=== PATIENT | male | born 1965 | race Caucasian/White ===

== ENCOUNTER 2021-04-22 16:33 | Emergency (ER) | payer OTHER, SELFPAY ==
--- NOTE | ~2021-04-22 | US_ITS ---
EXAMINATION: US VENOUS ULTRASOUND WITH DOPPLER LOWER EXTREMITY, RIGHT CLINICAL INFORMATION: Swelling, pain COMPARISON: None TECHNIQUE: Ultrasound of the deep veins is performed from the hip to the calf with compression sonography and color and pulse Doppler assessment. Spectral analysis with color-flow imaging is performed. FINDINGS: There is normal venous compression and respiratory variation and augmented flow. The visualized common femoral vein, superficial femoral vein, profunda femoral vein, popliteal vein, and the trifurcation region shows no evidence of deep venous thrombosis. There is no significant popliteal fossa cyst. If the patient's symptoms persist, followup ultrasound in 5 days 7 days might be of value to exclude proximal propagation from a non-visualized calf vein. US/US venous duplex LE RT IMPRESSION: No DVT demonstrated in the right lower extremity.
[2021-04-22 16:35] VITALS: BP 155/73; PULSE 90; RESP 18; TEMP 36.7; O2SAT 98; BMI 30.4
--- NOTE | 2021-04-22 17:00 | ED_ITS ---
HPI - Extremity Problem General Chief complaint: Extremity Injury, Lower Stated complaint: LEG PAIN Time Seen by Provider: 04/22/21 16:57 Source: patient Mode of arrival: ambulatory Limitations: no limitations History of Present Illness HPI Narrative: states right lower extremity below the knee slightly swollen and noted to have slight redness for the past 2 days. States he does work on [employer] and he is on his knees a lot and unsure if he abraded area. He otherwise denies any other symptoms, no fever, chest pain, shortness of breath or prior history of DVT. Onset (ago): day(s) Location: right Quality: aching Radiation: none Relieving factors: nothing Exacerbating factors: nothing Associated symptoms: denies other symptoms Related Data Previous Rx's Medication Instructions Recorded cephalexin 500 mg PO BID 10 Days #20 cap 04/22/21 sulfamethoxazole-trimethoprim 1 tab PO Q12H 7 Days #14 tab 04/22/21 [Bactrim DS] Allergies Allergy/AdvReac Type Severity Reaction Status Date / Time No Known Allergies Allergy Unverified 07/14/20 17:54 Review of Systems Review of Systems: Constitutional: No Weight loss, No Fever, No Chills, No Night Sweats, No Fatigue, No Malaise ENT/Mouth: No Hearing loss, No Ear Pain, No Nasal Congestion, No Sinus Pain, No Hoarseness, No sore throat, No Rhinorrhea, No Swallowing Difficulty Eyes: No Eye Pain, No Swelling, No Redness, No Foreign Body, No Discharge, No Vision Changes Cardiovascular: No Chest Pain, No SOB, No Dyspnea on Exertion, No Orthopnea, No Edema, No Palpitations Respiratory: No Cough, No Sputum, No Wheezing, No Smoke Exposure, No Dyspnea Gastrointestinal: No Nausea, No Vomiting, No Diarrhea, No Constipation, No abdominal Pain, No Hematochezia, No Melena Genitourinary: no irregular bleeding, No Dysuria, No Urinary Frequency, No Hematuria, No Urinary Incontinence, No Urgency, No Flank Pain, No Urinary Flow Changes, No Hesitancy Musculoskeletal: No joint pain, No Myalgias, No Joint Swelling Skin: No Skin Lesions, No rash , as noted per HPI Neuro: No Weakness, No Numbness, No Paresthesias, No Loss of Consciousness, No Dizziness, No Headache Psych: No Anxiety/Panic, No Depression, No SI/HI/AH/VH, No Social Issues, Heme/Lymph: No Bruising, No Bleeding,No Lymphadenopathy Endocrine: No Polyuria, No Polydipsia, No Temperature Intolerance Yes all other systems are reviewed and are negative [facility] Past Medical History Medical History (Updated 04/22/21 @ 19:59 by Tomas Tavera NP) No known health problems Social History Social History Advance Directives: No Advance Directives Information Provided: No Physical Exam Vital Signs: Vital Signs: Last Vital Signs Temp 98.0 F 04/22/21 16:35 Pulse 90 04/22/21 16:35 Resp 18 04/22/21 16:35 BP 155/73 H 04/22/21 16:35 Pulse Ox 98 04/22/21 16:35 Body Mass Index 30.4 Reviewed Const: General: cooperative and healthy appearing; No acute distress or intoxicated appearing Nutritional Appearance: average body habitus Orientation/consciousness: patient oriented x3 HENMT: Head: Yes normal to inspection Ears: hearing grossly normal bilaterally Eyes: General: appearance normal, both eyes and all related structures Vis ual Wheeler: normal visual wheeler by confrontation Neck: Neck: Yes normal visual inspection, No positive Brudzinski's sign, No positive Kernig's sign and No tender Thyroid: Thyroid normal Chest: Chest palpation & inspection: normal inspection of the chest Resp: Effort & Inspection: normal respiratory effort Cardio: Jugular venous distension: no JVD GI: Inspection: Yes normal to inspection Percussion: Yes normal to per cussion Auscultation: normal bowel sounds : General: Yes no CVA tenderness Back/Spine/Pelvis: Back: no CVA tenderness Skin: General skin exam: no rashes or lesions noted Neuro: General: patient oriented x3 Extrem: General: Yes normal to inspection Upper/lower leg/hip images: 1. very slight area of callus skin with very mi nimal skin erythema consistent with early cellulitis. Minimal swelling compared to the opposite leg. There is no overt edema, no pitting edema. Pulses distally within normal limits. Cap refill within normal limits. Knee exam unremarkable does not suggest acute joint. MDM - Extremity (Nontraumatic) Lab Data Result diagrams: 04/22/21 17:33 04/22/21 17:33 Labs: Lab Results 04/22/21 04/22/21 Range/Units 17:33 17:33 WBC 10.0 (4.8-10.8) X10*3/uL RBC 4.16 L (4.60-5.80) X10*6/uL Hgb 14.0 (14.0-18.0) g/dl Hct 39.9 L (42-52) % MCV 95.9 (80-98) fL MCH 33.7 H (27.0-33.0) pg MCHC 35.1 (31.0-36.0) g/dl RDW 11.8 (11.0-16.0) % Plt Count 198 (160-400) X10*3/uL MPV 9.7 (9.4-12.4) fL Immature Gran % (Auto) 0.2 (0.0-0.4) % Neut % (Auto) 56.5 (45-73) % Lymph % (Auto) 33.5 (20-40) % [place] % (Auto) 6.3 (2-11) % Eos % (Auto) 2.9 (0-4) % Baso % (Auto) 0.6 (0-2) % Lymph # (Auto) 3.3 (1.2-4.9) X10*3/uL [place] # (Auto) 0.6 (0.1-1.2) X10*3/uL Eos # (Auto) 0.3 (0.0-0.4) X10*3/uL Baso # (Auto) 0.1 (0.0-0.2) X10*3/uL Abs Immat Gran (auto) 0.02 (0.00-0.03) X10*3/uL Absolute Neuts (auto) 5.6 (2.0-8.3) X10*3/uL Absolute Nucleated RBC 0.000 (0.0-0.012) X10*3/uL Nucleated RBC % (auto) 0.0 (0.0-0.2) /100WBC Sodium 136 (135-145) mmol/L Potassium 3.9 (3.3-5.1) mmol/L Chloride 104 (96-108) mmol/L Carbon Dioxide 21 L (22-29) mmol/L Anion Gap 15 (12-20) BUN 22 H (9-16) mg/dL Creatinine 1.13 (0.5-1.4) mg/dL Estim Creat Clear Calc 78.8 Estimated GFR > 60 Random Glucose 156 H (60-115) mg/dL Calcium 9.4 (8.4-10.2) mg/dL Total Bilirubin 0.2 (0.0-1.0) mg/dL AST 20 (5-37) U/L ALT 19 (0-40) U/L Alkaline Phosphatase 96 (39-117) U/L Total Protein 7.6 (6.5-8.0) g/dL Albumin 4.4 (3.5-5.0) g/dL Imaging Data Right lower extremity ultrasound: Radiologist's impression: [address] [id number] ReportSigned Patient: Pat Shultz#: [id number]: 1965Acct:[id number]/Sex: 55 / MADM Date: 04/22/21Loc: [address]: Ordering Physician: Tomas Tavera NP Date of Service: 04/22/21 Procedure(s): US venous duplex LE RT Accession Number(s): [id number] cc: Tomas Tavera NP~ EXAMINATION: US VENOUS ULTRASOUND WITH DOPPLER LOWER EXTREMITY, RIGHT CLINICAL INFORMATION: Swelling, pain COMPARISON: None TECHNIQUE: Ultrasound of the deep veins is performed from the hip to the calf with compression sonography and color and pulse Doppler assessment. Spectral analysis with color-flow imaging is performed. FINDINGS: There is normal venous compression and respiratory variation and augmented flow. The visualized common femoral vein, superficial femoral vein, profunda femoral vein, popliteal vein, and the trifurcation region shows no evidence of deep venous thrombosis. There is no significant popliteal fossa cyst. If the patient's symptoms persist, followup ultrasound in 5 days 7 days might be of value to exclude proximal propagation from a non-visualized calf vein. US/US venous duplex LE RT IMPRESSION: No DVT demonstrated in the right lower extremity. Dictated By:JOHN ALDRICH MDSigned By:<Electronically signed by JOHN ALDRICH MD in OV>04/22/21 1842 DD/ 1720TD/TT: Mat Repairer: GT Discharge Plan Discharge Clinical Impression: Cellulitis of right lower leg Patient Disposition: Home, Self-Care Instructions: Cellulitis (ED) Additional Instructions: ice, elevate, compress Take your antibiotic ointment as prescribed Return if any concerns or worsening symptoms Thank you Prescriptions: New cephalexin 500 mg capsule 500 mg PO BID 10 Days Qty: 20 RF: 0 sulfamethoxazole-trimethoprim [Bactrim DS] 800-160 mg tablet 1 tab PO Q12H 7 Days Qty: 14 RF: 0 Referrals: Physician,Unknown [Primary Care Provider] - 5 days Discharge Date/Time: 04/22/21 20:19
[2021-04-22 17:37] LABS: MANUAL DIFF FLAG NO
[2021-04-22 17:40] LABS: Basophils Absolute Auto 0.1 X10*3/uL (0.0-0.2); Basophils Percent Auto 0.6 % (0-2); Eosinophils Absolute Auto 0.3 X10*3/uL (0.0-0.4); Eosinophils Percent Auto 2.9 % (0-4); Hematocrit 39.9 % (42-52); Imm Gran Abs Auto 0.02 X10*3/uL (0.00-0.03); Imm Gran Pct Auto 0.2 % (0.0-0.4); Lymphocytes Absolute Auto 3.3 X10*3/uL (1.2-4.9); Lymphocytes Percent Auto 33.5 % (20-40); Mean Corpuscular HGB Conc 35.1 g/dl (31.0-36.0); Mean Corpuscular Hemoglobin 33.7 pg (27.0-33.0); Mean Corpuscular Volume 95.9 fL (80-98); Mean Platelet Volume 9.7 fL (9.4-12.4); Monocytes Absolute Auto 0.6 X10*3/uL (0.1-1.2); Monocytes Percent Auto 6.3 % (2-11); Neutrophils Absolute Auto 5.6 X10*3/uL (2.0-8.3); Neutrophils Percent Auto 56.5 % (45-73); Platelet Count 198 X10*3/uL (160-400); Red Blood Count 4.16 X10*6/uL (4.60-5.80); Red Cell Distribution Width 11.8 % (11.0-16.0)
[2021-04-22 18:02] LABS: Alanine Aminotransferase 19 U/L (0-40); Albumin Level 4.4 g/dL (3.5-5.0); Alkaline Phosphatase 96 U/L (39-117); Anion Gap 15 (12-20); Aspartate Amino Transferase 20 U/L (5-37); Bilirubin Total 0.2 mg/dL (0.0-1.0); Blood Urea Nitrogen 22 mg/dL (9-16); Calcium 9.4 mg/dL (8.4-10.2); Carbon Dioxide 21 mmol/L (22-29); Chloride 104 mmol/L (96-108); Creatinine Clr Calc Pharmacy 78.8; Estimated Glomerular Filt Rate > 60; Glucose Random 156 mg/dL (60-115); Potassium 3.9 mmol/L (3.3-5.1); Sodium 136 mmol/L (135-145); Total Protein 7.6 g/dL (6.5-8.0)
== END 2021-04-22 20:19 | disposition home or self-care (01) ==
PROVIDERS: Nurse Practitioner Primary Care; Emergency Provider Emergency Medicine
DX: L03.115 Cellulitis of right lower limb (principal); M79.604 Pain in right leg
CPT/HCPCS: 36415; 80053; 85025; 93971; 99284

== ENCOUNTER 2021-05-04 11:33 | Outpatient (REF) | payer OTHER, SELFPAY ==
--- NOTE | ~2021-05-04 | XR_ITS ---
EXAMINATION: XR KNEE, RIGHT CLINICAL INFORMATION: Laceration anterior thigh. Right knee pain and effusion. COMPARISON: None TECHNIQUE: Four views of the right knee. FINDINGS: There is no evidence of acute fracture or dislocation of the right knee. There is mild narrowing of the medial joint space compartment with minimal spurring marginally. There is a small spur about the lateral facet of the patella. No effusion is identified. XR/XR knee RT 4V IMPRESSION: Mild degenerative change of the right knee as described without fracture or effusion identified.
== END 2021-05-04 11:34 | disposition home or self-care (01) ==
LOC: HO.XRAY 11:33
PROVIDERS: PCP Internal Medicine; Visit Provider Registered Nurse
DX: M25.461 Effusion, right knee (principal); M25.561 Pain in right knee
CPT/HCPCS: 73564

== ENCOUNTER 2021-06-09 16:28 | Emergency (ER) | payer OTHER, SELFPAY ==
[2021-06-09 16:44] VITALS: BP 127/65; PULSE 92; RESP 16; TEMP 36.9; O2SAT 95; BMI 30.5
--- NOTE | 2021-06-09 17:38 | ED_ITS ---
HPI - Skin/Abscess/Foreign Bdy General Chief complaint: Skin/Abscess/Foreign Body Stated complaint: wrist inj Time Seen by Provider: 06/09/21 17:24 Source: patient Mode of arrival: ambulatory Limitations: no limitations History of Present Illness HPI narrative: 55-year-old male presents for a lump in his right wrist that he noticed 2 or 3 days ago. Patient states it was swollen and painful, but he applied ice yesterday and the swelling-pain has decreased. 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 Patient was treated for cellulitis of his leg in March. No fevers, patient is feeling well otherwise. MD complaint: abscess/boil Onset (ago): day(s) (3) Tetanus up to date: unsure Location: RUE Severity: mild Severity scale (1-10): 2 Quality: aching Pain Consistency: now resolved Relieving factors: cold therapy Exacerbating factors: none Context: none Associated symptoms: denies other symptoms Treatments prior to arrival: other (ice) Related Data Previous Rx's Medication Instructions Recorded cephalexin 500 mg capsule 500 mg PO BID 10 Days #20 cap 04/22/21 sulfamethoxazole 800 1 tab PO Q12H 7 Days #14 tab 04/22/21 mg-trimethoprim 160 mg tablet (Bactrim DS) cephalexin 500 mg capsule 500 mg PO QID 7 Days #28 cap 06/09/21 sulfamethoxazole 800 1 tab PO Q12H 7 Days #14 tab 06/09/21 mg-trimethoprim 160 mg tablet (Bactrim DS) Allergies Allergy/AdvReac Type Severity Reaction Status Date / Time No Known Allergies Allergy Unverified 07/14/20 17:54 Review of Systems Constitutional: Constitutional: Denies body ache(s), Denies chills, Denies fatigue, Denies fever(s), Denies malaise and Denies weakness ENT: Denies otalgia, Denies nasal congestion, Denies post nasal drip and Denies sore throat Cardiovascular: Cardiovascular: Denies chest pain and Denies dyspnea Respiratory: Respiratory: Denies chest congestion, Denies cough and Denies dyspnea Gastrointestinal: Gastrointestinal: Denies abdominal pain, Denies hematochezia, Denies constipation, Denies diarrhea and Denies vomiting Musculoskeletal: Musculoskeletal: Reports no additional musculoskeletal complaints and Denies tingling Integumentary/Breasts: Skin/Breast: Reports rash Neurologic: Denies confusion, Denies tingling and Denies weakness Psychiatric: Psychiatric: Denies anxiety, Denies confusion and Denies depress ion Endocrine: Endocrine: Denies fatigue PMFSH Past Medical History Medical History (Updated 06/09/21 @ 17:41 by PRO Santo) No known health problems Social History Social History Advance Directives: No Advance Directives Information Provided: No Physical Exam Vital Signs: Vital Signs: Last Vital Signs Temp 98.4 F 06/09/21 16:44 Pulse 92 06/09/21 16:44 Resp 16 06/09/21 16:44 BP 127/65 06/09/21 16:44 Pulse Ox 95 06/09/21 16:44 Body Mass Index 30.5 Const: General: No confusion Nutritional Appearance: well nourished Orientation/consciousness: No confusion Limitations: no limitations Eyes: Conjunctivae: conjunctivae normal Pupils: Equal, round and reactive pupils present EOM: EOMs intact bilaterally Resp: Effort & Inspection: normal respiratory effort and able to speak in complete sentences Auscultation: clear to auscultation bilaterally, no crackles, no rales, no rhonchi and no wheezes Cardio: Rate: regular rate Rhythm: regular rhythm Heart sounds: S1 normal heart sound present and S2 normal heart sound present GI: Inspection: Yes normal to inspection Palpation (GI): Soft to palpation, nontender, no guarding and not rigid Percussion: Yes normal to percussion Auscultation: normal bowel sounds Skin: Other: Rashes: rashes noted Full body images: 1. 2 cm erythematous area of swelling Neuro: General: No confusion Cranial nerves: Yes Equal, round and reactive pupils present Extrem: General: Yes normal to inspection and Yes full ROM Psych: Appearance: grossly normal Affect: normal affect Attitude: cooperative Thought process: Normal thought process present Course Course Course Narrative: 55-year-old male presents for right wrist lump and swelling that started 3 days ago. On exam, the area is indurated, mildly erythematous. This may be a developing abscess, but I do not think there is anything to drain because the bump is hard. Counseled patient to take Bactrim and Keflex, to apply warm compresses for the next 2 days, and to return to the emergency room in 2 days if the area has not resolved. I did leyla the area with a surgical marker. Discharge Plan Discharge Clinical Impression: Cellulitis Qualifiers: Site of cellulitis: extremity Site of cellulitis of extremity: upper extremity Laterality: right Qualified Code(s): L03.113 - Cellulitis of right upper limb Patient Disposition: Home, Self-Care Instructions: Cellulitis (ED) Additional Instructions: Please fill both antibiotics and take them for the next week. Please start tonight. If in 2 days you have more redness, pain, or swelling, please return to be seen to the emergency room. As we discussed, this may get a little worse before it gets better, but if you have worsening symptoms on Saturday afternoon, please return to the emergency room. Please return for any fevers, any chest pain, shortness of breath, or any other new or concerning symptoms. Prescriptions: New cephalexin 500 mg capsule 500 mg PO QID 7 Days Qty: 28 RF: 0 sulfamethoxazole-trimethoprim [Bactrim DS] 800-160 mg tablet 1 tab PO Q12H 7 Days Qty: 14 RF: 0 No Action cephalexin 500 mg capsule 500 mg PO BID 10 Days Qty: 20 RF: 0 sulfamethoxazole-trimethoprim [Bactrim DS] 800-160 mg tablet 1 tab PO Q12H 7 Days Qty: 14 RF: 0
== END 2021-06-09 17:55 | disposition home or self-care (01) ==
PROVIDERS: Emergency Provider Emergency Medicine
DX: L03.113 Cellulitis of right upper limb (principal); M25.531 Pain in right wrist
CPT/HCPCS: 99283

== ENCOUNTER 2022-02-02 15:52 | Emergency (ER) | payer OTHER, SELFPAY ==
--- NOTE | ~2022-02-02 | XR_ITS ---
EXAMINATION: XR HAND, RIGHT CLINICAL INFORMATION: Second digit laceration, pain. COMPARISON: None TECHNIQUE: PA, lateral, and oblique views of the right hand. FINDINGS: A tiny osseous density seen along the radial margin of the distal phalanx of the second digit. The remainder the digits is intact. The joint spaces are unremarkable. The carpal bones are normally aligned. The distal radius and ulna are intact. Mild soft tissue swelling is seen in the second digit XR/XR hand RT min 3V IMPRESSION: Tiny osseous density along the radial margin of the distal phalanx of the second digit is of indeterminate age. An acute fracture cannot be excluded. Mild soft tissue swelling. No radiopaque foreign body.
[2022-02-02 15:55] VITALS: BP 141/78; PULSE 95; RESP 19; TEMP 36.1; O2SAT 98; BMI 31.2
[2022-02-02] MEDS: Lidocaine HCl 2 % MPF 5 ML VIAL SUBCUT (16:27)
--- NOTE | 2022-02-02 16:35 | ED.WOUNDLAC ---
HPI - Wound/Laceration General Chief Complaint: Wound/Laceration Stated Complaint: finger lac Time Seen by Provider: 02/02/22 16:07 Source: patient Mode of arrival: ambulatory Limitations: no limitations History of Present Illness HPI narrative: This is a 56-year-old male past medical history significant for diabetes presenting to the emergency department with complaints of right 2nd digit pain and a laceration to the area status post having the back of his pickup truck door fall in his hand he tells me this was approximately 500 lb. He tells me he is up to date on a tetanus shot. He is able to move his finger with pain. Bleeding well controlled. Denies numbness or tingling. Denies foreign body sensation. Denies fevers, chills, chest pain, shortness of breath, nausea, vomiting, headache, dizziness. He tells me he thinks he is up-to-date on a tetanus shot within last 5 years. Patient is right-hand dominant Onset (ago): hour(s) (3) Location: other (right second digit ) Body four view annotation: 1. linear laceration [address]: home Patient tetanus UTD: Yes Context: accidental Associated symptoms: pain Related Data Previous Rx's Medication Instructions Recorded cephalexin 500 mg capsule 500 mg PO BID 10 Days #20 cap 04/22/21 sulfamethoxazole 800 1 tab PO Q12H 7 Days #14 tab 04/22/21 mg-trimethoprim 160 mg tablet (Bactrim DS) cephalexin 500 mg capsule 500 mg PO QID 7 Days #28 cap 06/09/21 sulfamethoxazole 800 1 tab PO Q12H 7 Days #14 tab 06/09/21 mg-trimethoprim 160 mg tablet (Bactrim DS) cephalexin 500 mg tablet 500 mg PO Q6H 10 Days #40 tab 02/02/22 doxycycline hyclate 100 mg capsule 100 mg PO BID 10 Days #20 cap 02/02/22 Allergies Allergy/AdvReac Type Severity Reaction Status Date / Time No Known Allergies Allergy Verified 02/02/22 16:00 Review of Systems Review of Systems: Constitutional : No Fever, No Chills, Cardiovascular : No Chest Pain, No SOB Respiratory : No Dyspnea Gastrointestinal : No abdominal pain Musculoskeletal : No Joint Swelling Skin : No rash, positive skin laceration Neuro : No Weakness, No Numbness Psych : No SI/HI Yes all other systems are reviewed and are negative PMFSH Past Medical History Attestation statement: The following information was validated with the patient. Source: old records reviewed and nursing notes reviewed Medical History Diabetes No known health problems Social History Social History Advance Directives: No Advance Directives Information Provided: No Physical Exam Vital Signs: Vital Signs: Last Vital Signs Temp 97 F 02/02/22 15:55 Pulse 95 02/02/22 15:55 Resp 19 02/02/22 15:55 BP 141/78 H 02/02/22 15:55 Pulse Ox 98 02/02/22 15:55 BMI result Body Mass Index 31.2 Vital signs stable Appearance: Alert.? Oriented X3.? No acute distress.? Head: Normocephalic, atraumatic, no step-offs or deformities Eyes: Pupils equal, round and reactive to light.? ENT: Pharynx normal.? Neck: Normal inspection.? Neck supple.? CVS: Normal heart rate and rhythm.? Pulses normal.? Respiratory: No respiratory distress.? Breath sounds normal.? Abdomen: Soft and nontender.? Skin: Skin warm and dry.? Normal skin color.? Normal skin turgor.?+ 5 cm linear laceration to the right 2nd digit ventral aspect. Extremities: No lower extremity edema.? No calf ttp. 5/5 strength to bilateral upper and lower extremities + pain w/ rom of right second digit, this second right digit w/ ecchymosis. No evident foreign bodies. Capillary refill less than 2 seconds on all upper extremity digits. Bilateral radial pulses 2+ equal bilateral. Sensation intact to bilateral upper extremities. Back: No midline tenderness, no C-spine tenderness, full range of motion, no CVA tenderness bilaterally Neuro: Oriented X 3.? No motor deficit.? No sensory deficit. CN 2-12 intact Course Reevaluation(s) Reevaluation #1: The area was thoroughly at irrigated by myself, cleaned well, sutures in place for non dissolvable sutures. Explained to patient to return in 7-10 days for suture removal. Educated him on signs of infection. Outlined his on his discharge. Given worrisome signs and symptoms and when to return in outline is on his discharge. Comfortable discharge home with PCP follow-up. And follow-up with hand surgery. Time: 16:41 Reevaluation #2: Reviewed x-ray results with patient. I will have him follow-up with ortho. Cannot exclude a small fracture. He will be treated with antibiotics. Time: 17:42 MDM - Wound/Laceration MDM Narrative Medical decision making narrative: 1639 56-year-old male presents to the emergency department with pain, swelling, bruising and laceration to the right 2nd digit status post dropping the back of his pickup truck on his finger. Patient is a diabetic. Up-to-date on tetanus shot. Bleeding well controlled. Patient not on blood thinners. Upon physical examination pain w/ rom of right second digit, this second right digit w/ ecchymosis. No evident foreign bodies. Capillary refill less than 2 seconds on all upper extremity digits. Bilateral radial pulses 2+ equal bilateral. Sensation intact to bilateral upper extremities. Plan at this time is to suture the area to control bleeding. I will also obtain a x-ray of the right hand to rule out fractures/dislocations due to mechanism of injury. I plan to start patient on prophylactic antibiotics as he is a diabetic. Medical Records Attestation: I reviewed the patient's medical records. Lab Data Attestation: I reviewed the patient's lab results. Critical Care Time Critical Care Time Critical Care Time: No Discharge Plan Discharge Clinical Impression: Laceration, Finger pain, right Patient Disposition: Home, Self-Care Additional Instructions: Take your medications as prescribed. If you were prescribed antibiotics today, it is important that you take your medication to their entirety, do not skip any doses, do not finish them early. Follow-up with your primary care provider this week. Return to the emergency department with new or worsening symptoms. Such as fevers, chills, chest pain, shortness of breath, nausea, vomiting, dizziness, headache, vision changes, lethargy, any signs of infection at the wound such as warmth, discharge from the area, worsening swelling, inability to failure finger numbness or tingling. In case of emergency call 911 Return in 7-10 days for suture removal. XR/XR hand RT min 3V IMPRESSION: Tiny osseous density along the radial margin of the distal phalanx of the second digit is of indeterminate age. An acute fracture cannot be excluded. Mild soft tissue swelling. No radiopaque foreign body. Prescriptions: New doxycycline hyclate 100 mg capsule 100 mg PO BID 10 Days Qty: 20 0RF cephalexin 500 mg tablet 500 mg PO Q6H 10 Days Qty: 40 0RF No Action cephalexin 500 mg capsule 500 mg PO QID 7 Days Qty: 28 0RF sulfamethoxazole-trimethoprim [Bactrim DS] 800-160 mg tablet 1 tab PO Q12H 7 Days Qty: 14 0RF cephalexin 500 mg capsule 500 mg PO BID 10 Days Qty: 20 0RF sulfamethoxazole-trimethoprim [Bactrim DS] 800-160 mg tablet 1 tab PO Q12H 7 Days Qty: 14 0RF Referrals: Nafisa Holland MD [Physician] - 1 week Physician,Unknown J [Primary Care Provider] - Stand Alone Forms: Work/School Release
== END 2022-02-02 17:54 | disposition home or self-care (01) ==
PROVIDERS: Emergency Provider Emergency Medicine
DX: S61.210A Laceration without foreign body of right index finger without damage to nail, initial encounter (principal); Y28.9XXA Contact with unspecified sharp object, undetermined intent, initial encounter; Y93.9 Activity, unspecified; Y92.9 Unspecified place or not applicable; Y99.9 Unspecified external cause status; Z79.899 Other long term (current) drug therapy
CPT/HCPCS: 12042; 73130; 99283; 99284

== ENCOUNTER 2022-02-08 08:36 | Outpatient (REF) | payer OTHER, SELFPAY ==
--- NOTE | ~2022-02-08 | XR_ITS ---
EXAMINATION: XR HAND, RIGHT CLINICAL INFORMATION: Pain. COMPARISON: 02/02/2022. TECHNIQUE: PA, lateral, and oblique views of the right hand. FINDINGS: A tiny ossific density along the radial margin of the distal phalanx is unchanged. No new injuries. Mild joint space narrowing and subcortical sclerosis at the first CMC joint and triscaphe space. Diffuse nonspecific soft tissue swelling which is somewhat more noticeable surrounding the second digit. XR/XR hand RT min 3V IMPRESSION: Nonspecific soft tissue swelling in the second digit, correlate with physical examination. No interval osseous injuries. 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
== END 2022-02-08 08:37 | disposition home or self-care (01) ==
LOC: HO.HOSX 08:36
PROVIDERS: Visit Provider Physician Assistant
DX: S61.210A Laceration without foreign body of right index finger without damage to nail, initial encounter (principal)
CPT/HCPCS: 73130; 99202

== ENCOUNTER 2022-07-18 17:46 | Emergency (ER) | payer OTHER, SELFPAY ==
[2022-07-18 18:39] VITALS: BP 156/78; PULSE 80; RESP 18; TEMP 36.5; O2SAT 96; BMI 30.7
--- NOTE | 2022-07-18 19:49 | ED_ITS ---
HPI - General Adult General Chief complaint: General Medical Stated complaint: groin pain Time Seen by Provider: 07/18/22 19:40 Source: patient Mode of arrival: ambulatory Limitations: no limitations History of Present Illness HPI narrative: This is a 48-year-old male presenting to the emergency department with complaints of rash to the groin area x2 weeks. Patient tells me that the rash is itchy, red and very uncomfortable. 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 Patient denies fevers, chills, chest pain, shortness of breath, nausea, vomiting, penis pain, discharge from penis. Related Data Previous Rx's Medication Instructions Recorded cephalexin 500 mg capsule 500 mg PO BID 10 days #20 caps 04/22/21 sulfamethoxazole 800 1 tab PO Q12H 7 days #14 tabs 04/22/21 mg-trimethoprim 160 mg tablet (Bactrim DS) cephalexin 500 mg capsule 500 mg PO QID 7 days #28 caps 06/09/21 sulfamethoxazole 800 1 tab PO Q12H 7 days #14 tabs 06/09/21 mg-trimethoprim 160 mg tablet (Bactrim DS) cephalexin 500 mg tablet 500 mg PO Q6H 10 days #40 tabs 02/02/22 doxycycline hyclate 100 mg capsule 100 mg PO BID 10 days #20 caps 02/02/22 cephalexin 500 mg tablet 500 mg PO Q6H 10 days #40 tabs 07/18/22 clotrimazole 1 % topical cream 1 appl topical BID 2 weeks #30 07/18/22 (Jock Itch (clotrimazole)) grams prednisone 20 mg tablet 40 mg PO DAILY 5 days #10 tabs 07/18/22 Allergies Allergy/AdvReac Type Severity Reaction Status Date / Time No Known Allergies Allergy Verified 02/08/22 13:55 Review of Systems Review of Systems: Constitutional : No Fever, No Chills, Cardiovascular : No Chest Pain, No SOB Respiratory : No Dyspnea Gastrointestinal : No abdominal pain Musculoskeletal : No Joint Swelling Skin : + rash, no skin laceration Neuro : No Weakness, No Numbness Psych : No SI/HI Yes all other systems are reviewed and are negative PMFSH Past Medical History Attestation statement: The following information was validated with the patient. Source: old records reviewed and nursing notes reviewed Medical History Diabetes No known health problems Social History Social History Advance Directives: No Advance Directives Information Provided: No Physical Exam ED Vital Signs: Vital Signs - 24 hr 07/18/22 18:39 Temperature 97.7 F Pulse Rate 80 Respiratory Rate 18 Blood Pressure 156/78 H Pulse Oximetry 96 Oxygen Delivery Method Room Air BMI result Body Mass Index 30.7 vss Appearance: Alert.? Oriented X3.? No acute distress.? Head: Normocephalic, atraumatic, no step-offs or deformities Eyes: Pupils equal, round and reactive to light.? ENT: Pharynx normal.? Neck: Normal inspection.? Neck supple.? CVS: Normal heart rate and rhythm.? Pulses normal.? Respiratory: No respiratory distress.? Breath sounds normal.? Abdomen: Soft and nontender.? Skin: Skin warm and dry.? Normal skin color.? Normal skin turgor.? Extremities: No lower extremity edema.? No calf ttp. 5/5 strength to bilateral upper and lower extremities Sensitive exam: normal external genitalia, bilateral groin regions with e xcoriations, redness, and warmth. Back: No midline tenderness, no C-spine tenderness, full range of motion, no CVA tenderness bilaterally Neuro: Oriented X 3.? No motor deficit.? No sensory deficit. CN 2-12 intact Course Reevaluation(s) Reevaluation #1: Patient be discharged with the medications stated previously, patient verbalizes understanding, I answered all questions, advised him to return with new or worsening symptoms advised him to follow-up with PCP. Comfortable discharge home. Time: 19:51 Medical Decision Making [facility] Narrative Medical decision making narrative: 1952 56-year-old male presents with rash to bilateral groin region times a few weeks worsening. Physical examination concerning for possible Sandi of bilateral groins. Plan at this time is to discharge patient home with antibiotics for overlying cellulitis, clotrimazole and prednisone for rash. Medical Records Medical records reviewed: Yes I reviewed the patient's medical records. Lab Data Lab results reviewed: Yes I reviewed the patient's lab results. Discharge Plan Discharge Clinical Impression: Sandi rash of groin, Cellulitis Patient Disposition: Home, Self-Care Instructions: Cellulitis (ED), Skin Yeast Infection (ED) Additional Instructions: Take your medications as prescribed. If you were prescribed antibiotics today, it is important that you take your medication to their entirety, do not skip any doses, do not finish them early. Follow-up with your primary care provider this week. Return to the emergency department with new or worsening symptoms. Such as fe vers, chills, chest pain, shortness of breath, nausea, vomiting, dizziness, headache, vision changes, lethargy In case of emergency call 911 You can apply cool cloths to the affected area. Prescriptions: New prednisone 20 mg tablet 40 mg PO DAILY 5 Days Qty: 10 0RF cephalexin 500 mg tablet 500 mg PO Q6H 10 Days Qty: 40 0RF clotrimazole [Jock Itch (clotrimazole)] 1 % cream 1 appl topical BID 14 Days Qty: 30 0RF No Action cephalexin 500 mg capsule 500 mg PO QID 7 Days Qty: 28 0RF sulfamethoxazole-trimethoprim [Bactrim DS] 800-160 mg tablet 1 tab PO Q12H 7 Days Qty: 14 0RF cephalexin 500 mg capsule 500 mg PO BID 10 Days Qty: 20 0RF sulfamethoxazole-trimethoprim [Bactrim DS] 800-160 mg tablet 1 tab PO Q12H 7 Days Qty: 14 0RF doxycycline hyclate 100 mg capsule 100 mg PO BID 10 Days Qty: 20 0RF cephalexin 500 mg tablet 500 mg PO Q6H 10 Days Qty: 40 0RF Referrals: Physician,Unknown J [Primary Care Provider] - 2 days Stand Alone Forms: Work/School Release
--- NOTE | 2022-07-18 20:37 | PC.NURSE ---
Evaluated by provider. plan is for dc home. pt agreeable to plan. no acute distress noted. pt fully dressed and amubulatory in room
== END 2022-07-18 20:39 | disposition home or self-care (01) ==
PROVIDERS: Emergency Provider Emergency Medicine
DX: B37.2 Candidiasis of skin and nail (principal); B37.49 Other urogenital candidiasis; L03.314 Cellulitis of groin; E11.9 Type 2 diabetes mellitus without complications
CPT/HCPCS: 99282

== ENCOUNTER 2023-04-01 16:22 | Emergency (ER) | payer OTHER, SELFPAY ==
--- NOTE | ~2023-04-01 | XR_ITS ---
EXAMINATION: XR SHOULDER, RIGHT CLINICAL INFORMATION: Pain COMPARISON: None available. TECHNIQUE: Three views of the right shoulder. FINDINGS: Bone alignment is normal. No fracture or dislocation. Arthritis at the acromioclavicular joint. Normal glenohumeral joint. Question soft tissue calcification or ossification anterior humeral head possibly in the subscapularis tendon. XR/XR shoulder RT min 2V IMPRESSION: No fracture or dislocation. Arthritis at the glenohumeral joint and question periarticular soft tissue calcification.
[2023-04-01 18:16] VITALS: BP 139/78; PULSE 77; RESP 17; TEMP 36.1; O2SAT 97; BMI 31.5
[2023-04-01 23:39] VITALS: BP 148/78; PULSE 67; RESP 14; O2SAT 97
[2023-04-01] MEDS: Ketorolac Tromethamine 30 MG/ML VIAL IM (23:43)
[2023-04-01] MEDS: predniSONE 20 MG TABLET 60 MG PO (23:44)
--- NOTE | 2023-04-01 23:54 | ED_ITS ---
HPI - General Adult General Chief complaint: Extremity Problem Stated complaint: right shoulder pain inj Time Seen by Provider: 04/01/23 22:44 Source: patient Mode of arrival: ambulatory Limitations: no limitations History of Present Illness HPI narrative: 57 yold male presents to the ED for right shoulder pain for the past 2 weeks that without any trauma. patient states right shoulder pain on range of motion. Patient denies any chest pain, shortness of breath, swelling of extremity, redness, fever, chills, or recent fracture Related Data Previous Rx's Medication Instructions Recorded cephalexin 500 mg capsule 500 mg PO BID 10 days #20 caps 04/22/21 sulfamethoxazole 800 1 tab PO Q12H 7 days #14 tabs 04/22/21 mg-trimethoprim 160 mg tablet (Bactrim DS) cephalexin 500 mg capsule 500 mg PO QID 7 days #28 caps 06/09/21 sulfamethoxazole 800 1 tab PO Q12H 7 days #14 tabs 06/09/21 mg-trimethoprim 160 mg tablet (Bactrim DS) cephalexin 500 mg tablet 500 mg PO Q6H 10 days #40 tabs 02/02/22 doxycycline hyclate 100 mg capsule 100 mg PO BID 10 days #20 caps 02/02/22 cephalexin 500 mg tablet 500 mg PO Q6H 10 days #40 tabs 07/18/22 clotrimazole 1 % topical cream 1 appl topical BID 2 weeks #30 07/18/22 (Jock Itch (clotrimazole)) grams prednisone 20 mg tablet 40 mg PO DAILY 5 days #10 tabs 07/18/22 ketorolac 10 mg tablet 10 mg PO QID PRN pain 5 days #20 04/02/23 tabs prednisone 20 mg tablet 40 mg PO DAILY 5 days #10 tabs 04/02/23 Allergies Allergy/AdvReac Type Severity Reaction Status Date / Time No Known Allergies Allergy Verified 02/08/22 13:55 Review of Systems Review of Systems: Right shoulder pain Yes all other systems are reviewed and are negative PMFSH Past Medical History Medical History Diabetes No known health problems Social History Social History Smoked in Last 30 Days: No Use of substances other than those prescribed or required for medical reasons: No Advance Directives: No Advance Directives Information Provided: No Physical Exam ED Vital Signs: Vital Signs - 24 hr 04/01/23 18:16 04/01/23 23:39 04/02/23 00:24 Temperature 97.0 F Pulse Rate 77 67 Respiratory Rate 17 14 16 Blood Pressure 139/78 148/78 H Pulse Oximetry 97 97 Oxygen Delivery Method Room Air Room Air BMI result Body Mass Index 31.5 Const General: cooperative, healthy appearing, comfortable, no acute distress, well developed, alert, awake and Physically active Orientation/consciousness: oriented to person, oriented to place, oriented to time and patient oriented x3 HENNE Head: Yes normal to inspection, Yes No palpable skull fracture present, Yes normocephalic and Yes atraumatic Eyes General: appearance normal, both eyes and all related structures Neck Neck: Yes normal visual inspection, Yes full ROM, Yes no lymphadenopathy, Yes no meningeal signs, Yes trachea midline, Yes supple, No anterior neck swelling and No tender Chest Chest palpation & inspection: normal inspection of the chest and normal palpation of entire chest wall Resp Effort & Inspection: normal respiratory effort and able to speak in complete sentences Auscultation: clear to auscultation bilaterally Cardio Jugular venous distension: no JVD Heart sounds: S1 normal heart sound present and S2 normal heart sound present GI Inspection: Yes normal to inspection and No abdominal wall ecchymosis Palpation (GI): Soft to palpation, not firm, nontender, no guarding and not rigid General: No CVA tenderness and Yes no CVA tenderness Back/Spine/Pelvis Back: no CVA tenderness, No CVA tenderness and No back tenderness Skin General skin exam: no rashes or lesions noted and elasticity normal Neuro General: oriented to person, oriented to place, oriented to time, patient oriented x3, gait normal, tone normal, moves all extremities, Normal light touch and pain sensation, no meningeal signs, no focal motor deficits, CN's II-XI int act bilaterally and normal sensation to monofilament Extrem General: Yes normal to inspection and Yes full ROM Shoulder/upper arm images: 1. Tenderness on palpation. Positive for pain on range of motion. Negative for crepitus, ecchymosis, swelling of extremity, redness, deformity, bluish black discoloration, or red streaks. Vascular and neuro exam is intact. motor exam of shoulder limited due to pain Psych Appearance: grossly normal, well kempt and not disheveled Medications Administered Discontinued Medications Generic Name Dose Route Start Last Admin Trade Name Tono PRN Reason Stop Dose Admin Ketorolac Tromethamine 30 mg 04/01/23 23:28 04/01/23 23:43 Ketorolac Tromethamine 30 Mg/Ml Vial IM 04/01/23 23:29 30 mg ONCE ONE Administration Prednisone 60 mg 04/01/23 23:28 04/01/23 23:44 Prednisone 20 Mg Tablet PO 04/01/23 23:29 60 mg ONCE ONE Administration Medical Decision Making Medical Decision Making MDM Narrative: 57-year-old male presents to ED for right shoulder pain worse on movement without any trauma. Images negative for fracture but shows arthritis and calcification. Patient probably tendinitis with arthritis. Patient informed he will need follow-up with primary care for MRI to evaluate for tear. Patient given Toradol and prednisone which helped the pain Differential Diagnosis Differential Diagnoses: The differential diagnosis associated with the presentation includes (shoulder fracture, shoulder disclocation, clavicle fracture. ) Independent Interpretation I performed an independent interpretation of an: Plain X-Ray Radiology Impression Discussion of test interpretation with radiology: I have reviewed the radiologist's reading. Prescription Management I considered prescription management with: Pain Medication Discharge Plan Discharge Clinical Impression: Arthritis of shoulder region, right, Shoulder tendonitis Patient Disposition: Home, Self-Care Instructions: Rotator Cuff Tendinitis (ED), Osteoarthritis (ED) Additional Instructions: X-ray show signs of arthritis and tendinitis please follow-up with your primary care provider. Most likely will need MRI to rule out any tear. He will be discharged with pain medication and steroids. Return to the ED for worsening pain, swelling, redness, bluish black discoloration, fever, chills, red streaks, chest pain, shortness of breath, or any other concerning symptoms. Prescriptions: New ketorolac 10 mg tablet 10 mg PO QID PRN (Reason: pain) 5 Days Qty: 20 0RF Rx Instructions: recieved 30mg IM toradol in the ED prednisone 20 mg tablet 40 mg PO DAILY 5 Days Qty: 10 0RF No Action cephalexin 500 mg capsule 500 mg PO QID 7 Days Qty: 28 0RF sulfamethoxazole-trimethoprim [Bactrim DS] 800-160 mg tablet 1 tab PO Q12H 7 Days Qty: 14 0RF cephalexin 500 mg capsule 500 mg PO BID 10 Days Qty: 20 0RF sulfamethoxazole-trimethoprim [Bactrim DS] 800-160 mg tablet 1 tab PO Q12H 7 Days Qty: 14 0RF doxycycline hyclate 100 mg capsule 100 mg PO BID 10 Days Qty: 20 0RF cephalexin 500 mg tablet 500 mg PO Q6H 10 Days Qty: 40 0RF prednisone 20 mg tablet 40 mg PO DAILY 5 Days Qty: 10 0RF cephalexin 500 mg tablet 500 mg PO Q6H 10 Days Qty: 40 0RF clotrimazole [Jock Itch (clotrimazole)] 1 % cream 1 appl topical BID 14 Days Qty: 30 0RF Stand Alone Forms: Work/School Release Interventions: ED Discharge Assessment Last Done: 04/02/23 00:25 Discharge Date/Time: 04/02/23 00:26 Print Language: Citizen Of [place]
[2023-04-02 00:24] VITALS: RESP 16
== END 2023-04-02 00:26 | disposition home or self-care (01) ==
PROVIDERS: Emergency Provider Internal Medicine
DX: M19.011 Primary osteoarthritis, right shoulder (principal); M75.31 Calcific tendinitis of right shoulder; M25.511 Pain in right shoulder; E11.9 Type 2 diabetes mellitus without complications
CPT/HCPCS: 73030; 96374; 99284; J1885

== ENCOUNTER 2023-07-05 13:43 | Emergency (ER) | payer OTHER, SELFPAY ==
[2023-07-05 15:14] VITALS: BP 134/73; PULSE 86; RESP 17; TEMP 36.7; O2SAT 95; BMI 24.9
--- NOTE | 2023-07-05 15:18 | ED_ITS ---
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 Patient reports the pain started here 4 days ago. He was lifting a heavy box when he felt the pain The pain does not radiate. Denies any numbness, tingling Denies any bladder or bowel incontinence, lower extremity weakness He has a history of similar pain Denies any falls Related Data Previous Rx's Medication Instructions Recorded cephalexin 500 mg capsule 500 mg PO BID 10 days #20 caps 04/22/21 sulfamethoxazole 800 1 tab PO Q12H 7 days #14 tabs 04/22/21 mg-trimethoprim 160 mg tablet (Bactrim DS) cephalexin 500 mg capsule 500 mg PO QID 7 days #28 caps 06/09/21 sulfamethoxazole 800 1 tab PO Q12H 7 days #14 tabs 06/09/21 mg-trimethoprim 160 mg tablet (Bactrim DS) cephalexin 500 mg tablet 500 mg PO Q6H 10 days #40 tabs 02/02/22 doxycycline hyclate 100 mg capsule 100 mg PO BID 10 days #20 caps 02/02/22 cephalexin 500 mg tablet 500 mg PO Q6H 10 days #40 tabs 07/18/22 clotrimazole 1 % topical cream 1 appl topical BID 2 weeks #30 07/18/22 (Jock Itch (clotrimazole)) grams prednisone 20 mg tablet 40 mg (2 x 20 mg) PO DAILY 5 days 07/18/22 #10 tabs ketorolac 10 mg tablet 10 mg PO QID PRN pain 5 days #20 04/02/23 tabs prednisone 20 mg tablet 40 mg (2 x 20 mg) PO DAILY 5 days 04/02/23 #10 tabs dexamethasone 4 mg tablet 4 mg PO BID #6 tabs 07/05/23 methocarbamol 500 mg tablet 500 mg PO TID PRN muscle spasm #14 07/05/23 tabs Allergies Allergy/AdvReac Type Severity Reaction Status Date / Time No Known Allergies Allergy Verified 02/08/22 13:55 Review of Systems Cardiovascular: Cardiovascular: Denies chest pain Respiratory: Respiratory: Denies cough and Denies pain with cough Gastrointestinal: Gastrointestinal: Denies abdominal pain, Denies nausea and Denies vomiting Musculoskeletal: Musculoskeletal: Reports back pain, Denies numbness, Denies radiating pain into limb, Reports stiffness and Denies tingling Neurologic: Denies numbness and Denies tingling PMFSH Past Medical History Medical History Diabetes No known health problems Physical Exam ED Vital Signs: Vital Signs - 24 hr 07/05/23 15:14 Temperature 98.0 F Pulse Rate 86 Respiratory Rate 17 Blood Pressure 134/73 Pulse Oximetry 95 Oxygen Delivery Method Room Air BMI result Body Mass Index 24.9 Const General: healthy appearing, comfortable, no acute distress, alert and awake Nutritional Appearance: well nourished Orientation/consciousness: patient oriented x3 HENMT Head: Yes normocephalic and Yes atraumatic Throat: Yes posterior oropharynx normal Eyes Eyelids: Yes eyelids normal Conjunctivae: conjunctivae normal Sclerae: sclerae normal Corneas: corneas normal Pupils: Equal, round and reactive pupils present EOM: EOMs intact bilaterally Neck Neck: Yes full ROM Resp Effort & Inspection: normal respiratory effort, able to speak in complete sentences and not labored Back/Spine/Pelvis Other: Mild right lumbar paraspinals in sinus. No vertebral tenderness, no step-offs deformities. Negative straight leg raise Skin General skin exam: elasticity normal Neuro General: patient oriented x3 Cranial nerves: Yes Equal, round and reactive pupils present and Yes Bilaterally intact EOM present Cognition (Neuro): normal cognition Extrem Other: Moving all extremities well without any obvious deformities Medical Decision Making Medical Decision Making MDM Narrative: Patient has exacerbation acute on chronic back pain after lifting heavy objects 3 days ago. No warning flags for cauda equinus syndrome. No trauma to warrant emergent imaging at this time. Patient be discharged with symptomatic care Differential Diagnosis Differential Diagnoses: The differential diagnosis associated with the presentation includes Muscle strain Lumbar radiculopathy Sciatica Lower back pain Discharge Plan Discharge Clinical Impression: Lower back pain Patient Disposition: Home, Self-Care Instructions: Acute Low Back Pain (ED) Additional Instructions: Use ibuprofen as needed for pain. You may use methocarbamol as needed for muscle spasms. This may make you sleepy, did not drink alcohol or drive after taking it Use warm compresses as well Take Decadron twice daily for the next 3 days Prescriptions: New dexamethasone 4 mg tablet 4 mg PO BID Qty: 6 0RF methocarbamol 500 mg tablet 500 mg PO TID PRN (Reason: muscle spasm) Qty: 14 0RF No Action cephalexin 500 mg capsule 500 mg PO QID 7 Days Qty: 28 0RF sulfamethoxazole-trimethoprim [Bactrim DS] 800-160 mg tablet 1 tab PO Q12H 7 Days Qty: 14 0RF cephalexin 500 mg capsule 500 mg PO BID 10 Days Qty: 20 0RF sulfamethoxazole-trimethoprim [Bactrim DS] 800-160 mg tablet 1 tab PO Q12H 7 Days Qty: 14 0RF doxycycline hyclate 100 mg capsule 100 mg PO BID 10 Days Qty: 20 0RF cephalexin 500 mg tablet 500 mg PO Q6H 10 Days Qty: 40 0RF prednisone 20 mg tablet 40 mg PO DAILY 5 Days Qty: 10 0RF cephalexin 500 mg tablet 500 mg PO Q6H 10 Days Qty: 40 0RF clotrimazole [Jock Itch (clotrimazole)] 1 % cream 1 appl topical BID 14 Days Qty: 30 0RF ketorolac 10 mg tablet 10 mg PO QID PRN (Reason: pain) 5 Days Qty: 20 0RF Rx Instructions: recieved 30mg IM toradol in the ED prednisone 20 mg tablet 40 mg PO DAILY 5 Days Qty: 10 0RF
== END 2023-07-05 15:28 | disposition home or self-care (01) ==
PROVIDERS: Emergency Provider Emergency Medicine
DX: M54.50 Low back pain, unspecified (principal); E11.9 Type 2 diabetes mellitus without complications
CPT/HCPCS: 99282; 99283

== ENCOUNTER 2023-11-05 10:15 | Outpatient (REF) | payer OTHER, SELFPAY ==
[2023-11-05 11:28] LABS: MANUAL DIFF FLAG NO
[2023-11-05 11:35] LABS: Basophils Absolute Auto 0.1 X10*3/uL (0.0-0.2); Basophils Percent Auto 0.8 % (0-2); Eosinophils Absolute Auto 0.4 X10*3/uL (0.0-0.4); Eosinophils Percent Auto 4.1 % (0-4); Hematocrit 43.9 % (42.0-52.0); Imm Gran Abs Auto 0.03 X10*3/uL (0.00-0.03); Imm Gran Pct Auto 0.3 % (0.0-0.4); Lymphocytes Absolute Auto 3.5 X10*3/uL (1.2-4.9); Mean Corpuscular HGB Conc 34.2 g/dl (31.0-36.0); Mean Corpuscular Hemoglobin 32.8 pg (27.0-33.0); Mean Corpuscular Volume 96.1 fL (80.0-98.0); Mean Platelet Volume 10.9 fL (9.4-12.4); Monocytes Absolute Auto 0.6 X10*3/uL (0.1-1.2); Monocytes Percent Auto 7.2 % (2-11); Neutrophils Absolute Auto 4.2 x10*3/uL (2.0-8.3); Neutrophils Percent Auto 47.6 % (45-73); Platelet Count 190 X10*3/uL (160-400); Red Blood Count 4.57 X10*6/uL (4.60-5.80); Red Cell Distribution Width 11.9 % (11.0-16.0); White Blood Count 8.9 X10*3/uL (4.8-10.8)
[2023-11-05 12:48] LABS: Alanine Aminotransferase 34 U/L (0-40); Albumin Level 4.4 g/dL (3.5-5.0); Alkaline Phosphatase 78 U/L (39-117); Anion Gap 14 (12-20); Aspartate Amino Transferase 24 U/L (5-37); Bilirubin Total 0.7 mg/dL (0.0-1.0); Blood Urea Nitrogen 20 mg/dL (9-16); Calcium 9.4 mg/dL (8.4-10.2); Carbon Dioxide 25 mmol/L (22-29); Chloride 102 mmol/L (96-108); Cholesterol 296 mg/dL (<200); Estimated Glomerular Filt Rate > 60; Glucose Random 249 mg/dL (60-115); HDL Cholesterol 43 mg/dL (>40); LDL Cholesterol Calculated 185 mg/dL (<100); Potassium 4.3 mmol/L (3.3-5.1); Sodium 137 mmol/L (135-145); Total Protein 7.5 g/dL (6.5-8.0); Triglycerides 343 mg/dL (<150)
[2023-11-05 15:42] LABS: Reflex LDLD? No
[2023-11-07 06:43] LABS: Absolute CD3 Count 2860 cells/uL (840-3060); Absolute CD4 Count 1581 cells/uL (490-1740); Absolute CD8 Count 1256 cells/uL (180-1170); Absolute Lymphocytes 3294 cells/uL (850-3900); CD4 CD8 Ratio 1.26 (0.86-5.00); Percent CD3 Cells 87 % (57-85); Percent CD4 Cells 48 % (30-61); Percent CD8 Cells 38 % (12-42)
[2023-11-08 19:00] LABS: HIV RNA PCR Qn Copies <20 DETECTED copies/mL (NOT DETECTED); HIV RNA PCR Qn Log Copies <1.30 DETECTED (NOT DETECTED)
== END 2023-11-05 10:16 | disposition home or self-care (01) ==
LOC: HO.HHCL 10:15
PROVIDERS: Visit Provider Internal Medicine
DX: B20 Human immunodeficiency virus [HIV] disease (principal)
CPT/HCPCS: 36415; 80053; 80061; 85025; 86359; 86360; 87536

== ENCOUNTER 2024-05-25 09:16 | Outpatient (REF) | payer OTHER, SELFPAY ==
[2024-05-25 11:36] LABS: MANUAL DIFF FLAG NO
[2024-05-25 11:39] LABS: Basophils Absolute Auto 0.1 X10*3/uL (0.0-0.2); Eosinophils Absolute Auto 0.3 X10*3/uL (0.0-0.4); Eosinophils Percent Auto 4.2 % (0-4); Hematocrit 43.8 % (42.0-52.0); Hemoglobin 15.3 g/dl (14.0-18.0); Imm Gran Abs Auto 0.01 X10*3/uL (0.00-0.03); Imm Gran Pct Auto 0.1 % (0.0-0.4); Lymphocytes Absolute Auto 2.8 X10*3/uL (1.2-4.9); Lymphocytes Percent Auto 37.8 % (20-40); Mean Corpuscular HGB Conc 34.9 g/dl (31.0-36.0); Mean Corpuscular Hemoglobin 33.6 pg (27.0-33.0); Mean Corpuscular Volume 96.1 fL (80.0-98.0); Mean Platelet Volume 11.1 fL (9.4-12.4); Monocytes Absolute Auto 0.4 X10*3/uL (0.1-1.2); Monocytes Percent Auto 5.3 % (2-11); Neutrophils Absolute Auto 3.8 x10*3/uL (2.0-8.3); Neutrophils Percent Auto 51.6 % (45-73); Platelet Count 184 X10*3/uL (160-400); Red Blood Count 4.56 X10*6/uL (4.60-5.80); Red Cell Distribution Width 12.4 % (11.0-16.0); White Blood Count 7.3 X10*3/uL (4.8-10.8)
[2024-05-25 12:04] LABS: Alanine Aminotransferase 23 U/L (0-40); Albumin Level 4.2 g/dL (3.5-5.0); Alkaline Phosphatase 85 U/L (39-117); Anion Gap 12 (12-20); Aspartate Amino Transferase 17 U/L (5-37); Bilirubin Total 0.4 mg/dL (0.0-1.0); Blood Urea Nitrogen 16 mg/dL (9-16); Calcium 9.4 mg/dL (8.4-10.2); Carbon Dioxide 23 mmol/L (22-29); Chloride 105 mmol/L (96-108); Estimated Glomerular Filt Rate > 60; Glucose Random 211 mg/dL (60-115); Potassium 4.4 mmol/L (3.3-5.1); Sodium 136 mmol/L (135-145); Total Protein 7.2 g/dL (6.5-8.0)
[2024-05-25 12:16] LABS: Syphilis Screen Nonreactive (Nonreactive)
[2024-05-25 12:23] LABS: Hepatitis A Antibody IgG REACTIVE (Nonreactive); ~Hepatitis A Antibody IgG 9.65 S/CO (0.00-0.99)
[2024-05-25 12:26] LABS: HBS Num1 0.53 mIU/mL (0-7.99); HBc Num1 0.11 S/CO (0.00-0.79); HBsAGNum1 0.27 S/CO (0.00-0.99); Hepatitis B Core Antibody Nonreactive (Nonreactive); Hepatitis B Surface Antigen Negative (Negative); ~HepC Num1 0.11 S/CO (0.00-0.79); ~Hepatitis B Surface Antibody NONREACTIVE (Nonreactive); ~Hepatitis C Antibody Nonreactive (Nonreactive)
[2024-05-25 14:24] LABS: CT PCR NOT DETECTED (Not Detect.); NG PCR NOT DETECTED (Not Detect.)
[2024-05-26 14:48] LABS: HIV RNA PCR Qn Copies 39 copies/mL (NOT DETECTED); HIV RNA PCR Qn Log Copies 1.59 (NOT DETECTED)
[2024-05-28 02:29] LABS: TS Negative Control Passed; TS Panel A 0; TS Panel B 0; TS Positive Control Passed; TSpotTB Negative (Negative)
[2024-05-29 01:19] LABS: Absolute CD3 Count 2582 cells/uL (840-3060); Absolute CD4 Count 1396 cells/uL (490-1740); Absolute CD8 Count 1164 cells/uL (180-1170); Absolute Lymphocytes 3000 cells/uL (850-3900); Percent CD3 Cells 86 % (57-85); Percent CD4 Cells 47 % (30-61); Percent CD8 Cells 39 % (12-42)
== END 2024-05-25 09:17 | disposition home or self-care (01) ==
LOC: HO.HHCL 09:16
PROVIDERS: Visit Provider Internal Medicine
DX: B20 Human immunodeficiency virus [HIV] disease (principal)
CPT/HCPCS: 36415; 80053; 85025; 86359; 86360; 86481; 86704; 86706; 86708; 86780; 86803; 87340; 87491; 87536; 87591

== ENCOUNTER 2024-06-30 08:29 | Outpatient (AMB) | payer OTHER, SELFPAY ==
[2024-06-30 08:35] VITALS: BMI 24.8
--- NOTE | 2024-06-30 08:35 | MHC.OFFVIS ---
Vital Signs 06/30/24 08:35 Height 5 ft 8 in Weight 163 lb BMI 24.8 Intake Visit Reasons: New Prob-chronic right shoulder pain Intake Note: Mr. Shultz presents with complaints of progressively worsening right shoulder pain. The patient describes his pain as sharp in nature. He reports mild weakness when lifting his right hand above shoulder height. His symptoms have gotten worse over the last 6 months in spite of continued non operative treatments. The patient states that approximately 6 months ago he was ?working with something heavy? when he had acute onset of pain along the lateral aspect of his right shoulder. Since that time he has had weakness when lifting his right hand above shoulder height. He has done physical therapy exercises which aggravated his pain. He has also tried Tylenol and anti-inflammatory medicines which gave him minimal relief. 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 Capsule Machine Operator Language: Licensed Nursing Assistant Name: Harsha [id number] Allergies No Known Allergies Allergy (Verified 06/30/24 08:36) Medication List - Last Reconciled 07/01/24 by Shay Pollock MD cephalexin 500 mg PO BID 10 days cephalexin 500 mg PO QID 7 days cephalexin 500 mg PO Q6H 10 days cephalexin 500 mg PO Q6H 10 days clotrimazole 1% (Jock Itch (clotrimazole)) 1 appl topical BID 2 weeks dexamethasone 4 mg PO BID doxycycline hyclate 100 mg PO BID 10 days ketorolac 10 mg PO QID PRN 5 days methocarbamol 500 mg PO TID PRN prednisone 40 mg (2 x 20 mg) PO DAILY 5 days prednisone 40 mg (2 x 20 mg) PO DAILY 5 days sulfamethoxazole-trimethoprim 800-160 mg (Bactrim DS) 1 tab PO Q12H 7 days sulfamethoxazole-trimethoprim 800-160 mg (Bactrim DS) 1 tab PO Q12H 7 days PFSH Medical History Diabetes No known health problems Physical Exam Vital Signs: BMI result Body Mass Index 24.8 Const Other: Well-nourished well-developed very friendly male awake alert and oriented x3 in no acute distress Extrem Other: Bilateral upper extremity examination shows good capillary refill, no skin lesions noted, normal sensation light touch Right shoulder examination shows decreased range of motion when compared to his left shoulder, 4+ out of 5 strength with supraspinatus testing, positive impingement signs, tenderness over his acromioclavicular joint, no instability Office Procedures Joint Injection/Aspiration Joint Injection/Aspiration Primary Site: right shoulder Prep: site was prepped using aseptic technique Injected: 40 mg of, DepoMedrol and 1% plain lidocaine Procedure: The patient tolerated the procedure well Coding - Large joint Procedure code (CPT) selection complete Results Reviewed Results Reviewed: X-rays of the patient's right shoulder show severe acromioclavicular joint narrowing, a type 2 acromion, no acute bony abnormalities Assessment & Plan Assessment & Plan (1) Impingement of right shoulder: Code(s): M25.811 - Other specified joint disorders, right shoulder Category: Medical Plan Mr. Shultz presents with progressively worsening right shoulder pain due to impingement syndrome, acromioclavicular joint arthritis and possible rotator cuff tearing. I had a lengthy discussion with the patient regarding the treatment options. He wishes hold off on getting an MRI for now. The risks and benefits of a right shoulder cortisone injection were discussed at length with the patient. The patient wished to proceed. He tolerated the injection well. He will continue with his range of motion exercises to prevent stiffness. He will contact me prior to his follow-up appointment in 3 months should his symptoms worsen in any way. If his symptoms do not improve I will order an MRI of his right shoulder to further evaluate the status of his rotator cuff tendons. Feel free to call me at any time should questions regarding his orthopedic management arise. Thank you very much for asking me to see this very friendly gentleman. I spent 20 minutes in reviewing the patient's records and imaging studies, seeing the patient and documenting in the medical record. Orders: Orders XR shoulder RT min 2V 06/30/24 M25.511 - Pain in right shoulder AMB Joint Injection/Aspiration 06/30/24 M25.811 - Other specified joint disorders, right shoulder Coding Level of Care Code New Pt Level 3 (17351) Complex EM visit Add On G2211 Diagnoses Impingement of right shoulder M25.811 CPT Codes Coding - 71806 Large joint: 07638 - Large joint ([id number])
== END 2024-06-30 09:21 | disposition home or self-care (01) ==
PROVIDERS: Visit Provider Orthopaedic Surgery
DX: M75.41 Impingement syndrome of right shoulder (principal); M19.011 Primary osteoarthritis, right shoulder
CPT/HCPCS: 20610; 99203

== ENCOUNTER 2024-06-30 08:44 | Outpatient (REF) | payer OTHER, SELFPAY | END 2024-06-30 08:45 | disposition home or self-care (01) | LOC: HO.HOSX 08:44 | PROVIDERS: Visit Provider Orthopaedic Surgery | DX: M25.811 Other specified joint disorders, right shoulder (principal); M25.511 Pain in right shoulder | CPT/HCPCS: 20610; 99202; J1010 ==

== ENCOUNTER 2024-09-16 09:42 | Outpatient (REF) | payer OTHER, SELFPAY ==
[2024-09-16 11:50] LABS: Estimated Average Glucose 192 mg/dL; Hemoglobin A1C 263.5839 umol/L; Hemoglobin A1c % 8.3 % (<6.0); Total Hemoglobin (HGBA1C) 3909.4388 umol/L
[2024-09-16 11:58] LABS: Anion Gap 14 (12-20); Blood Urea Nitrogen 17 mg/dL (9-16); Calcium 9.5 mg/dL (8.4-10.2); Carbon Dioxide 24 mmol/L (22-29); Chloride 103 mmol/L (96-108); Cholesterol 223 mg/dL (<200); Estimated Glomerular Filt Rate > 60; Glucose Random 191 mg/dL (60-115); HDL Cholesterol 48 mg/dL (>40); LDL Cholesterol Calculated 129 mg/dL (<100); Sodium 137 mmol/L (135-145); Triglycerides 230 mg/dL (<150)
[2024-09-16 12:27] LABS: Creatinine Urine 83.94 mg/dL; Microalbumin Urine < 5.0 mg/L
== END 2024-09-16 09:43 | disposition home or self-care (01) ==
LOC: HO.HHCL 09:42
PROVIDERS: Visit Provider Nurse Practitioner Primary Care
DX: I15.2 Hypertension secondary to endocrine disorders (principal); E11.59 Type 2 diabetes mellitus with other circulatory complications; E78.5 Hyperlipidemia, unspecified
CPT/HCPCS: 36415; 80048; 80061; 82043; 82570; 83036

== ENCOUNTER 2024-10-29 09:19 | Outpatient (AMB) | payer OTHER, SELFPAY ==
[2024-10-29 09:27] VITALS: BMI 24.8
--- NOTE | 2024-10-29 09:27 | A.OFFVIS_ITS ---
Vital Signs 10/29/24 09:27 Height 5 ft 8 in Weight 163 lb BMI 24.8 Intake Visit Reasons: OV chronic right shoulder pain Intake Note: Pavan is a 58 year old male who presents with complaints of progressively worsening right shoulder pain. He describes his pain as sharp in nature. He reports mild weakness in his shoulder. He has done physical therapy exercises which aggravated his pain. He has also tried Tylenol and anti-inflammatory medicines which gave him minimal relief. Has had cortisone injections in the past which gave him fairly good relief. He wishes to hold off on surgery if at all possible. 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 Upsetting Machine Operator Language: Animal Behaviorist Services: Upsetting Machine Operator Present Upsetting Machine Operator Name: NichelleNENA/RITA Allergies No Known Allergies Allergy (Verified 10/29/24 09:27) Medication List - Last Reconciled 10/30/24 by Shay Pollock MD diclofenac potassium 50 mg PO PRN dolutegravir (Tivicay) 50 mg PO DAILY emtricitabine-tenofovir alafen 200-25 mg (Descovy) 1 tab PO DAILY lisinopril-hydrochlorothiazide 10-12.5 mg 1 tab PO DAILY metformin ER 750 mg PO methocarbamol 500 mg PO TID PRN rosuvastatin 10 mg PO BEDTIME [facility] Medical History Diabetes No known health problems Physical Exam Vital Signs: BMI result Body Mass Index 24.8 Const Other: Well-nourished well-developed very friendly male awake alert and oriented x3 in no acute distress Extrem Other: Bilateral upper extremity examination shows good capillary refill, no skin lesions noted, normal sensation light touch Right shoulder examination shows slightly decreased range of motion when compared to his left shoulder, 4+ out of 5 strength with supraspinatus testing, positive impingement signs, no instability Office Procedures AMB Joint Injection/Aspiration Joint Injection/Aspiration Primary Site: right shoulder Prep: site was prepped using aseptic technique Injected: 40 mg of, DepoMedrol and 1% plain lidocaine Procedure: The patient tolerated the procedure well Coding 42232 - Large joint Procedure code (CPT) selection complete Assessment & Plan Assessment & Plan (1) Impingement of right shoulder: Code(s): M25.811 - Other specified joint disorders, right shoulder Category: Medical Plan Mr. Shultz presents with progressively worsening right shoulder pain due to impingement syndrome. The risks and benefits of a right shoulder cortisone injection were discussed at length with the patient. The patient wished to proceed. He tolerated the injection well. He will continue with his range of motion exercises. He will contact me prior to his follow-up appointment in 3 months should any questions or concerns arise. Feel free to call me at any time should questions regarding his orthopedic management arise. I spent 22 minutes in reviewing the patient's records and imaging studies, seeing the patient and documenting in the medical record. Orders: Orders AMB Joint Injection/Aspiration 10/29/24 M25.811 - Other specified joint disorders, right shoulder Coding Level of Care Code Est Pt Level 3 (88244) Complex EM visit Add On G2211 Diagnoses Impingement of right shoulder M25.811 CPT Codes Coding - 45936 Large joint: 87315 - Large joint ([id number])
== END 2024-10-29 09:45 | disposition home or self-care (01) ==
PROVIDERS: Visit Provider Orthopaedic Surgery
DX: M25.811 Other specified joint disorders, right shoulder (principal)
CPT/HCPCS: 20610; 99213

== ENCOUNTER → 2024-10-29 09:19 | Outpatient (BNVA) | payer OTHER, SELFPAY | PROVIDERS: Visit Provider Orthopaedic Surgery | DX: M25.811 Other specified joint disorders, right shoulder (principal) | CPT/HCPCS: 20610; 99212; J1010; J2003 ==

== ENCOUNTER 2024-12-22 09:51 | Outpatient (REF) | payer OTHER, SELFPAY ==
[2024-12-22 11:39] LABS: MANUAL DIFF FLAG NO
[2024-12-22 11:52] LABS: Basophils Absolute Auto 0.1 X10*3/uL (0.0-0.2); Basophils Percent Auto 0.5 % (0-2); Eosinophils Absolute Auto 0.4 X10*3/uL (0.0-0.4); Eosinophils Percent Auto 4.7 % (0-4); Hematocrit 41.7 % (42.0-52.0); Hemoglobin 14.6 g/dl (14.0-18.0); Imm Gran Abs Auto 0.03 X10*3/uL (0.00-0.03); Imm Gran Pct Auto 0.3 % (0.0-0.4); Lymphocytes Absolute Auto 3.4 X10*3/uL (1.2-4.9); Mean Corpuscular Volume 94.1 fL (80.0-98.0); Mean Platelet Volume 10.6 fL (9.4-12.4); Monocytes Absolute Auto 0.6 X10*3/uL (0.1-1.2); Monocytes Percent Auto 6.3 % (2-11); Neutrophils Absolute Auto 4.9 x10*3/uL (2.0-8.3); Neutrophils Percent Auto 52.2 % (45-73); Platelet Count 189 X10*3/uL (160-400); Red Blood Count 4.43 X10*6/uL (4.60-5.80); Red Cell Distribution Width 12.1 % (11.0-16.0); White Blood Count 9.3 X10*3/uL (4.8-10.8)
[2024-12-22 12:09] LABS: Alanine Aminotransferase 30 U/L (0-40); Albumin Level 4.5 g/dL (3.5-5.0); Alkaline Phosphatase 88 U/L (39-117); Anion Gap 14 (12-20); Aspartate Amino Transferase 25 U/L (5-37); Bilirubin Total 0.6 mg/dL (0.0-1.0); Blood Urea Nitrogen 19 mg/dL (9-16); Calcium 9.4 mg/dL (8.4-10.2); Carbon Dioxide 24 mmol/L (22-29); Chloride 103 mmol/L (96-108); Estimated Glomerular Filt Rate > 60; Glucose Random 303 mg/dL (60-115); Potassium 4.1 mmol/L (3.3-5.1); Sodium 137 mmol/L (135-145); Total Protein 7.9 g/dL (6.5-8.0)
[2024-12-24 17:33] LABS: HIV RNA PCR Qn Copies 282 copies/mL (NOT DETECTED); HIV RNA PCR Qn Log Copies 2.45 (NOT DETECTED)
[2024-12-25 20:33] LABS: Absolute CD3 Count 2729 cells/uL (840-3060); Absolute CD4 Count 1441 cells/uL (490-1740); Absolute CD8 Count 1271 cells/uL (180-1170); Absolute Lymphocytes 3170 cells/uL (850-3900); CD4 CD8 Ratio 1.13 (0.86-5.00); Percent CD3 Cells 86 % (57-85); Percent CD4 Cells 45 % (30-61); Percent CD8 Cells 40 % (12-42)
== END 2024-12-22 09:52 | disposition home or self-care (01) ==
LOC: HO.HHCL 09:51
PROVIDERS: Visit Provider Internal Medicine
DX: B20 Human immunodeficiency virus [HIV] disease (principal)
CPT/HCPCS: 36415; 80053; 85025; 86359; 86360; 87536

== ENCOUNTER 2025-02-04 08:25 | Outpatient (AMB) | payer OTHER, SELFPAY ==
[2025-02-04 08:42] VITALS: BMI 24.8
--- NOTE | 2025-02-04 08:42 | A.OFFVIS_ITS ---
Vital Signs 02/04/25 08:42 Height 5 ft 8 in Weight 163 lb BMI 24.8 Intake Visit Reasons: Right shoulder pain Intake Note: Pavan is a 59 year old male who presents with complaints of right shoulder pain. He describes his pain as sharp in nature. He denies any weakness. He has done physical therapy exercises which aggravated his pain. He has also tried Tylenol and anti-inflammatory medicines which gave him mild relief. He wishes to hold off on surgery if at all possible. It Compliance Analyst Required: No Allergies No Known Allergies Allergy (Verified 10/29/24 09:27) Medication List - Last Reconciled 02/04/25 by Shay Pollock MD diclofenac potassium 50 mg PO PRN dolutegravir (Tivicay) 50 mg PO DAILY emtricitabine-tenofovir alafen 200-25 mg (Descovy) 1 tab PO DAILY lisinopril-hydrochlorothiazide 10-12.5 mg 1 tab PO DAILY metformin ER 750 mg PO methocarbamol 500 mg PO TID PRN rosuvastatin 10 mg PO BEDTIME [facility] Medical History Diabetes No known health problems Physical Exam Vital Signs: BMI result Body Mass Index 24.8 Const Other: Well-nourished well-developed very friendly male awake alert and oriented x3 in no acute distress Extrem Other: Bilateral upper extremity examination shows good capillary refill, no skin lesions noted, normal sensation light touch Right shoulder examination shows full range of motion when compared to his left shoulder, 4+ out of 5 strength with supraspinatus testing, positive impingement signs, no instability Office Procedures AMB Joint Injection/Aspiration Joint Injection/Aspiration Primary Site: right shoulder Prep: site was prepped using aseptic technique Injected: 40 mg of, DepoMedrol and 1% plain lidocaine Procedure: The patient tolerated the procedure well Coding 37507 - Large joint Procedure code (CPT) selection complete Assessment & Plan Assessment & Plan (1) Impingement of right shoulder: Code(s): M25.811 - Other specified joint disorders, right shoulder Category: Medical (2) Right shoulder pain: Code(s): M25.511 - Pain in right shoulder Category: Medical Plan Mr. Shultz presents with right shoulder pain due to impingement syndrome. The risks and benefits of a right shoulder cortisone injection were discussed at length with the patient. The patient wished to proceed. He tolerated the injection well. He will continue with his range of motion exercises to prevent stiffness. He will contact me prior to his follow-up appointment in 3 months should any questions or concerns arise. I spent 21 minutes in reviewing the patient's records and imaging studies, seeing the patient and documenting in the medical record. Orders: Orders AMB Joint Injection/Aspiration Today M25.811 - Other specified joint disorders, right shoulder Coding Level of Care Code Est Pt Level 3 (68728) Complex EM visit Add On G2211 Diagnoses Impingement of right shoulder M25.811 Right shoulder pain M25.511 CPT Codes Coding - 00666 Large joint: 94886 - Large joint ([id number])
== END 2025-02-04 08:57 | disposition home or self-care (01) ==
LOC: HO.HOS 08:25
PROVIDERS: Visit Provider Orthopaedic Surgery
DX: M25.811 Other specified joint disorders, right shoulder (principal); M25.511 Pain in right shoulder
CPT/HCPCS: 20610; 99213

== ENCOUNTER → 2025-02-04 08:25 | Outpatient (BNVA) | payer OTHER, SELFPAY | PROVIDERS: Visit Provider Orthopaedic Surgery | DX: M25.811 Other specified joint disorders, right shoulder (principal); M25.511 Pain in right shoulder | CPT/HCPCS: 20610; 99212; J1010; J2003 ==

== ENCOUNTER 2025-02-04 09:37 | Outpatient (REF) | payer OTHER, SELFPAY ==
[2025-02-04 12:09] LABS: Alanine Aminotransferase 33 U/L (0-40); Albumin Level 4.6 g/dL (3.5-5.0); Alkaline Phosphatase 91 U/L (39-117); Aspartate Amino Transferase 32 U/L (5-37); Bilirubin Direct 0.2 mg/dL (0.0-0.5); Bilirubin Total 0.8 mg/dL (0.0-1.0); Total Protein 7.4 g/dL (6.5-8.0)
[2025-02-05 14:57] LABS: HIV RNA PCR Qn Copies 285 copies/mL (NOT DETECTED); HIV RNA PCR Qn Log Copies 2.45 (NOT DETECTED)
== END 2025-02-04 09:38 | disposition home or self-care (01) ==
LOC: HO.HHCL 09:37
PROVIDERS: Visit Provider Internal Medicine
DX: B20 Human immunodeficiency virus [HIV] disease (principal)
CPT/HCPCS: 36415; 80076; 87536

== ENCOUNTER 2025-04-15 06:24 | Emergency (ER) | payer OTHER, SELFPAY ==
--- NOTE | ~2025-04-15 | XR_ITS ---
CLINICAL HISTORY: pain 3 views lumbar spine Comparison: None provided Findings: Normal alignment. Large anterior osteophytes are seen at multiple levels. The disc spaces are relatively preserved. There is facet arthropathy in the lower lumbar spine in particular. No significant degenerative change. IMPRESSION: No acute findings. This document has been electronically signed by: Mikhail Irizarry MD on 04/15/2025 07:58:41
[2025-04-15 06:26] VITALS: BP 138/51; PULSE 72; RESP 20; TEMP 36.2; O2SAT 97; BMI 27.4
--- NOTE | 2025-04-15 06:56 | ED.BACK ---
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 Yesterday he lifted a lot and now he has biilateral low back pain no radiation. He took ibuprofen last night no relief. He has no fevers, abdominal pain, loss of control of bowel or bladder, saddle anesthesia. He notes it hurts to move and walk. He has had this before in the past due to his job. No fevers, IVDA, thinners. MD elicited complaint: back pain and back injury Pertinent past history: prior back pain Onset (ago): day(s) (1) Timing: constant Severity: moderate Quality: throbbing Location: lumbar spine Radiation: none Exacerbating factors: movement Relieving factors: none Context: while lifting Associated symptoms: denies other symptoms Treatments prior to arrival: NSAIDS Work related injury: Yes Related Data Home Medications ?Medication ?Instructions ?Recorded ?Confirmed diclofenac potassium 50 mg tablet 50 mg PO PRN low back pain 10/29/24 02/04/25 dolutegravir 50 mg tablet (Tivicay) 50 mg PO DAILY 10/29/24 02/04/25 emtricitabine 200 mg-tenofovir 1 tab PO DAILY 10/29/24 02/04/25 alafenamide fumarate 25 mg tablet (Descovy) lisinopril 10 1 tab PO DAILY 10/29/24 02/04/25 mg-hydrochlorothiazide 12.5 mg tablet metformin 750 mg tablet,extended 750 mg PO 10/29/24 02/04/25 release 24 hr rosuvastatin 10 mg tablet 10 mg PO BEDTIME 10/29/24 02/04/25 Previous Rx's ?Medication ?Instructions ?Recorded methocarbamol 500 mg tablet 500 mg PO TID PRN muscle spasm #14 07/05/23 tabs diazepam 5 mg tablet (Valium) 5 mg PO BID PRN muscle spasm #6 04/15/25 tabs lidocaine 5 % topical patch 1 patch topical DAILY #30 ea 04/15/25 Allergies Allergy/AdvReac Type Severity Reaction Status Date / Time No Known Allergies Allergy Verified 04/15/25 06:28 Review of Systems Review of Systems: Constitutional : No Weight loss, No Fever, No Chills, ENT/Mouth : No Hearing loss, No Ear Pain, No Nasal Congestion, No Sinus Pain, No Hoarseness, No sore throat, No Rhinorrhea, No Swallowing Difficulty Cardiovascular : No Chest Pain, No SOB Respiratory : No Cough, No Dyspnea Gastrointestinal : No Nausea, No Vomiting, No Diarrhea, No abdominal Pain, No Hematochezia, No Melena Genitourinary : No Dysuria, No Urinary Frequency, No Hematuria, No Urinary Incontinence, Musculoskeletal : positive back pain Skin : No Skin Lesions, No rash Neuro : No Weakness, No Numbness, No Paresthesias, no loss of bowel or bladder incontinence, no saddle anesthesia all other systems reviewed and are negative [facility] Past Medical History Attestation statement: The following information was validated with the patient. Source: old records reviewed Medical History Diabetes No known health problems Social History Social History (Updated 04/15/25 @ 06:57 by Mirna Enciso DO) Patient Tobacco Use Status: Never used Tobacco Advance Directives: No Advance Directives Information Provided: No Physical Exam Vital Signs: Vital Signs: Last Vital Signs Temp 97.1 F 04/15/25 06:26 Pulse 72 04/15/25 06:26 Resp 20 04/15/25 06:26 BP 138/51 L 04/15/25 06:26 Pulse Ox 97 04/15/25 06:26 O2 Del Method Room Air 04/15/25 06:26 BMI result Body Mass Index 27.4 Appearance: Alert. Oriented X3. No acute distress. Eyes: Pupils equal, round and reactive to light. ENT: Pharynx normal. Neck: Normal inspection. Neck supple. CVS: Normal heart rate and rhythm. Pulses normal. Respiratory: No respiratory distress. Breath sounds normal. Abdomen: Soft and nontender. Back: ttp along paraspinal lumbar spine Skin: Skin warm and dry. Normal skin color. Normal skin turgor. Extremities: No lower extremity edema. No calf ttp Neuro: Oriented X 3. No motor deficit. No sensory deficit. CN2-12 intact L5/5 bilaterally SILT in legs, DTR patella 2+ Medications Administered Discontinued Medications Generic Name Dose Route Start Last Admin Trade Name Tono PRN Reason Stop Dose Admin Ketorolac Tromethamine 30 mg 04/15/25 07:27 04/15/25 07:34 Ketorolac Tromethamine 30 Mg/Ml Vial IM 04/15/25 07:28 30 mg ONCE ONE Administration Methocarbamol 750 mg 04/15/25 07:27 04/15/25 07:34 Methocarbamol 750 Mg Tablet PO 04/15/25 07:28 750 mg ONCE ONE Administration Medical Decision Making Medical Decision Making MDM Narrative: 59 yo male with PMH of HIV, DM, HTN, HLD here with c/o low back pain after heavy lifting. He has no red flags on exam and is nv intact. He is likely in spasm due to strain. He has no cauda equina symptoms. At this time xray ordered and toradol shot at his request. Will start on muscle relaxers and pain patches. Given precautions to return Differential Diagnosis Differential Diagnoses: The differential diagnosis associated with the presentation includes lumbar strain, muscle spasms Admission/Observation Consideration of admission/observation: Escalation of care including admission/observation considered he is able to walk and no cauda equina symptoms stable for DC Independent Interpretation I performed an independent interpretation of an: Plain X-Ray Radiology Impression Discussion of test interpretation with radiology: I have reviewed the radiologist's reading. Independent Historian Clinical information obtained from an independent historian. History obtained from or confirmed by: Spouse External Record Review External record reviewed: Outpatient record Prescription Management I considered prescription management with: Pain Medication and Other Discharge Plan Discharge Clinical Impression: Strain of lumbar region Patient Disposition: Home, Self-Care Instructions: Low Back Strain (ED) Additional Instructions: return for any concerning signs like numbness, weakness, loss of control of bowel or bladder, or any other concerns follow up with your doctor if not better by [facility] for physical therapy rest and stay hydrated no heavy lifting for 10 days that means no more than 10lbs Findings: Normal alignment. Large anterior osteophytes are seen at multiple levels. The disc spaces are relatively preserved. There is facet arthropathy in the lower lumbar spine in particular. No significant degenerative change. IMPRESSION: No acute findings. Prescriptions: New lidocaine 5 % adhesive patch,medicated 1 patch topical DAILY Qty: 30 0RF Rx Instructions: leave on most painful area for up to 12 hrs diazepam [Valium] 5 mg tablet 5 mg PO BID PRN (Reason: muscle spasm) Qty: 6 0RF Rx Instructions: partial fill is okay No Action methocarbamol 500 mg tablet 500 mg PO TID PRN (Reason: muscle spasm) Qty: 14 0RF diclofenac potassium 50 mg tablet 50 mg PO PRN (Reason: low back pain) Descovy 200-25 mg tablet 1 tab PO DAILY Tivicay 50 mg tablet 50 mg PO DAILY rosuvastatin 10 mg tablet 10 mg PO BEDTIME lisinopril-hydrochlorothiazide 10-12.5 mg tablet 1 tab PO DAILY metformin 750 mg tablet extended release 24 hr 750 mg PO Print Language: Amharic
[2025-04-15] MEDS: methocarbamoL 750 MG TABLET PO (07:34)
[2025-04-15] MEDS: Ketorolac Tromethamine 30 MG/ML VIAL IM (07:34)
[2025-04-15 08:18] VITALS: BP 138/51; PULSE 72; RESP 20; TEMP 36.2; O2SAT 97
== END 2025-04-15 08:18 | disposition home or self-care (01) ==
PROVIDERS: Emergency Provider Emergency Medicine; PCP Nurse Practitioner Primary Care
DX: S39.012A Strain of muscle, fascia and tendon of lower back, initial encounter (principal); X50.3XXA Overexertion from repetitive movements, initial encounter; X50.0XXA Overexertion from strenuous movement or load, initial encounter; Y93.9 Activity, unspecified; Y92.9 Unspecified place or not applicable; Y99.0 Civilian activity done for income or pay; Z79.899 Other long term (current) drug therapy
CPT/HCPCS: 72100; 96372; 99283; 99284; J1885

== ENCOUNTER → 2025-04-15 07:15 | Outpatient (BNV) | payer OTHER, SELFPAY | PROVIDERS: Emergency Provider Emergency Medicine; PCP Nurse Practitioner Primary Care; Visit Provider Radiology Diagnostic Radiology | DX: M54.50 Low back pain, unspecified (principal) | CPT/HCPCS: 72100 ==

== ENCOUNTER 2025-05-06 08:34 | Outpatient (AMB) | payer OTHER, SELFPAY ==
--- NOTE | 2025-05-06 08:41 | A.OFFVIS_ITS ---
Intake Visit Reasons: Right shoulder pain Intake Note: Pavan is a 59 year old male who presents with complaints of right shoulder pain. He describes his pain as sharp in nature. He denies any weakness. Most of the pain is along the lateral aspect of his shoulder. He has tried Tylenol and anti-inflammatory medicines which gave him only mild relief. He has had cortisone injections which gave him good relief. He wishes to hold off on surgery for as long as possible. 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 Allergies No Known Allergies Allergy (Verified 05/06/25 08:41) Medication List - Last Reconciled 05/06/25 by Shay Pollock MD diazepam (Valium) 5 mg PO BID PRN diclofenac potassium 50 mg PO PRN dolutegravir (Tivicay) 50 mg PO DAILY emtricitabine-tenofovir alafen 200-25 mg (Descovy) 1 tab PO DAILY lidocaine 5% 1 patch topical DAILY lisinopril-hydrochlorothiazide 10-12.5 mg 1 tab PO DAILY metformin ER 750 mg PO methocarbamol 500 mg PO TID PRN rosuvastatin 10 mg PO BEDTIME [facility] Medical History Diabetes No known health problems Social History (Updated 04/15/25 @ 06:57 by Mirna Enciso DO) Patient Tobacco Use Status: Never used Tobacco Physical Exam Const Other: Well-nourished well-developed very friendly male awake alert and oriented x3 in no acute distress Extrem Other: Right shoulder examination shows slightly decreased range of motion when compared to his left shoulder, 4+ out of 5 strength with supraspinatus testing, positive impingement signs, no instability Office Procedures AMB Joint Injection/Aspiration Joint Injection/Aspiration Primary Site: right shoulder Prep: site was prepped using aseptic technique Injected: 40 mg of, DepoMedrol and 1% plain lidocaine Procedure: The patient tolerated the procedure well Coding 76437 - Large joint Procedure code (CPT) selection complete Assessment & Plan Assessment & Plan (1) Impingement of right shoulder: Code(s): M25.811 - Other specified joint disorders, right shoulder Category: Medical (2) Right shoulder pain: Code(s): M25.511 - Pain in right shoulder Category: Medical Plan Mr. Shultz presents with right shoulder pain due to impingement syndrome. I had a lengthy discussion with the patient regarding the treatment options. The risks and benefits of a right shoulder cortisone injection were discussed at length with the patient. The patient wished to proceed. He tolerated the injection well. He will continue with his home stretching program. He will contact me prior to his follow-up appointment in 3 months should any questions or concerns arise. I spent 21 minutes in reviewing the patient's records and imaging studies, seeing the patient and documenting in the medical record. Orders: Orders AMB Joint Injection/Aspiration Today M25.811 - Other specified joint disorders, right shoulder Coding Level of Care Code Est Pt Level 3 (25390) Complex EM visit Add On G2211 Diagnoses Impingement of right shoulder M25.811 Right shoulder pain M25.511 CPT Codes Coding - 93995 Large joint: 74344 - Large joint ([id number])
== END 2025-05-06 09:07 | disposition home or self-care (01) ==
LOC: HO.HOS 08:35
PROVIDERS: Visit Provider Orthopaedic Surgery
DX: M25.811 Other specified joint disorders, right shoulder (principal); M25.511 Pain in right shoulder
CPT/HCPCS: 20610; 99213

== ENCOUNTER → 2025-05-06 08:34 | Outpatient (BNVA) | payer OTHER, SELFPAY | PROVIDERS: Visit Provider Orthopaedic Surgery | DX: M25.811 Other specified joint disorders, right shoulder (principal); M25.511 Pain in right shoulder | CPT/HCPCS: 20610; 99212; J1010; J2003 ==

== ENCOUNTER 2025-05-21 10:03 | Outpatient (REF) | payer OTHER, SELFPAY ==
[2025-05-21 10:22] LABS: MANUAL DIFF FLAG NO
[2025-05-21 10:42] LABS: Hematocrit 40.6 % (42.0-52.0); Hemoglobin 14.1 g/dl (14.0-18.0); Imm Gran Abs Auto 0.03 X10*3/uL (0.00-0.03); Imm Gran Pct Auto 0.3 % (0.0-0.4); Lymphocytes Absolute Auto 3.6 X10*3/uL (1.2-4.9); Mean Corpuscular HGB Conc 34.7 g/dl (31.0-36.0); Mean Corpuscular Hemoglobin 32.9 pg (27.0-33.0); Mean Corpuscular Volume 94.6 fL (80.0-98.0); NRBC Abs Auto 0.000 X10*3/uL (0.0-0.012); NRBC Pct Auto 0.0 /100WBC (0.0-0.2); Platelet Count 180 X10*3/uL (160-400); Red Blood Count 4.29 X10*6/uL (4.60-5.80); White Blood Count 9.9 X10*3/uL (4.8-10.8)
[2025-05-21 11:14] LABS: Alanine Aminotransferase 26 U/L (0-40); Albumin Level 4.8 g/dL (3.5-5.0); Alkaline Phosphatase 81 U/L (39-117); Anion Gap 12 (12-20); Aspartate Amino Transferase 24 U/L (5-37); Blood Urea Nitrogen 22 mg/dL (9-16); Calcium 9.5 mg/dL (8.4-10.2); Carbon Dioxide 24 mmol/L (22-29); Chloride 106 mmol/L (96-108); Estimated Glomerular Filt Rate > 60; Potassium 4.2 mmol/L (3.3-5.1); Sodium 138 mmol/L (135-145); Total Protein 7.5 g/dL (6.5-8.0)
[2025-05-21 11:31] LABS: ~HepC Num1 0.07 S/CO (0.00-0.79); ~Hepatitis C Antibody Nonreactive (Nonreactive)
[2025-05-24 12:54] LABS: TS Negative Control Passed; TS Panel A 0; TS Panel B 0; TS Positive Control Passed; TSpotTB Negative (Negative)
[2025-05-25 14:18] LABS: HIV RNA PCR Qn Copies <20 DETECTED
[2025-05-25 14:19] LABS: HIV RNA PCR Qn Log Copies <1.30 DETECTED
[2025-05-27 17:54] LABS: Absolute CD3 Count 2850 cells/uL (840-3060); Absolute CD8 Count 1118 cells/uL (180-1170); Percent CD3 Cells 88 % (57-85); Percent CD8 Cells 34 % (12-42)
== END 2025-05-21 10:04 | disposition home or self-care (01) ==
LOC: HO.LAB 10:03
PROVIDERS: Internal Medicine; PCP Nurse Practitioner Primary Care; Visit Provider Nurse Practitioner Primary Care
DX: Z11.1 Encounter for screening for respiratory tuberculosis (principal); Z11.59 Encounter for screening for other viral diseases; B20 Human immunodeficiency virus [HIV] disease
CPT/HCPCS: 36415; 80053; 85025; 86359; 86360; 86481; 86803; 87536

== ENCOUNTER 2025-08-10 07:40 | Outpatient (AMB) | payer OTHER, SELFPAY ==
--- NOTE | 2025-08-10 07:49 | MHC.OFFVIS ---
Intake Visit Reasons: Inj-Rt shoulder pain last inj 05/06/25 Intake Note: Pavan is a 59 year old male who presents with complaints of right shoulder pain. He describes his pain as sharp in nature. He denies any weakness. He has tried Tylenol and anti-inflammatory medicines which gave him minimal relief. He has had cortisone injections in the past which gave him fairly good relief. He wishes to hold off on surgery if at all possible. Allergies No Known Allergies Allergy (Verified 08/10/25 07:49) Medication List - Last Reconciled 08/10/25 by Shay Pollock MD diazepam (Valium) 5 mg PO BID PRN diclofenac potassium 50 mg PO PRN dolutegravir (Tivicay) 50 mg PO DAILY emtricitabine-tenofovir alafen 200-25 mg (Descovy) 1 tab PO DAILY lidocaine 5% 1 patch topical DAILY lisinopril-hydrochlorothiazide 10-12.5 mg 1 tab PO DAILY metformin ER 750 mg PO methocarbamol 500 mg PO TID PRN rosuvastatin 10 mg PO BEDTIME PFSH Medical History Diabetes No known health problems Social History Patient Tobacco Use Status: Never used Tobacco Physical Exam Const Other: Well-nourished well-developed very friendly male awake alert and oriented x3 in no acute distress Extrem Other: Right shoulder examination shows almost full range of motion when compared to his left shoulder, 5/5 strength with supraspinatus testing, positive impingement signs, no instability Office Procedures AMB Joint Injection/Aspiration Joint Injection/Aspiration Primary Site: right shoulder Prep: site was prepped using aseptic technique Injected: 40 mg of, DepoMedrol and 1% plain lidocaine Procedure: The patient tolerated the procedure well Coding 50830 - Large joint Procedure code (CPT) selection complete Assessment & Plan Assessment & Plan (1) Impingement of right shoulder: Code(s): M25.811 - Other specified joint disorders, right shoulder Category: Medical Plan Mr. Shultz presents with right shoulder pain due to impingement syndrome. The risks and benefits of a right shoulder cortisone injection were discussed at length with the patient. The patient wished to proceed. Tolerated the injection well. He will continue with his home exercise program. He will contact me prior to his follow-up appointment in 3 months should any questions or concerns arise. I spent 22 minutes in reviewing the patient's records and imaging studies, seeing the patient and documenting in the medical record. Orders: Orders AMB Joint Injection/Aspiration Today M25.811 - Other specified joint disorders, right shoulder Coding Level of Care Code Est Pt Level 3 (10494) Complex EM visit Add On G2211 Diagnoses Impingement of right shoulder M25.811 CPT Codes Coding - 78077 Large joint: 19643 - Large joint ([id number])
== END 2025-08-10 08:04 | disposition home or self-care (01) ==
LOC: HO.HOS 07:40
PROVIDERS: Visit Provider Orthopaedic Surgery
DX: M25.811 Other specified joint disorders, right shoulder (principal)
CPT/HCPCS: 20610

== ENCOUNTER → 2025-08-10 07:40 | Outpatient (BNVA) | payer OTHER, SELFPAY | PROVIDERS: Visit Provider Orthopaedic Surgery | DX: M25.511 Pain in right shoulder (principal); M25.811 Other specified joint disorders, right shoulder | CPT/HCPCS: 20610; J1010; J2003 ==